=== PATIENT | male | born 1955 | race Caucasian/White ===

== ENCOUNTER 2023-12-15 09:05 | Day surgery (SDC) | payer MEDICARE ==
[2023-12-15] VITALS (16 sets, daily range): BP systolic 129–163; BP diastolic 66–92; PULSE 73–97; RESP 8–24; TEMP 98; O2SAT 16–97
[~2023-12-15] VITALS: Ht 172.7 cm; Wt 91.4 kg
[2023-12-15] MEDS ORDERED: LISI40TA13 PO (09:40)
[2023-12-15] MEDS ORDERED: FLO0.4C PO (09:40)
[2023-12-15] MEDS ORDERED: PIOG15TA8 PO (09:40)
[2023-12-15] MEDS ORDERED: [UNRECOGNIZED DRUG - CODE] PO (09:40)
[2023-12-15] MEDS ORDERED: PANT-47 PO (09:40)
[2023-12-15] MEDS ORDERED: METO-384 PO (09:40)
[2023-12-15] MEDS ORDERED: RIVA20TA PO (09:40)
[2023-12-15] MEDS ORDERED: ROSU40TA22 PO (09:40)
[2023-12-15 10:06] LABS: BASOPHILS # (AUTO) 0.1 X10'3 (0-0.2); BASOPHILS % (AUTO) 1.5 % (0-1); EOSINOPHILS # (AUTO) 0.1 X10'3 (0-0.9); EOSINOPHILS % (AUTO) 1.4 % (0-6); HEMATOCRIT 36.1 % (42.0-52.0); HEMOGLOBIN 11.5 g/dl (14.0-17.9); LYMPHOCYTES # (AUTO) 0.7 X10'3 (1.1-4.8); LYMPHOCYTES % (AUTO) 8.3 % (21-51); MEAN CORPUSCULAR HEMOGLOBIN 26.4 PG (27.0-31.0); MEAN CORPUSCULAR HGB CONC 31.9 g/dL (33.0-36.5); MEAN PLATELET VOLUME 9.2 FL (7.4-10.4); MONOCYTES # (AUTO) 0.6 X10'3 (0-0.9); MONOCYTES % (AUTO) 7.4 % (2-12); NEUTROPHILS # (AUTO) 6.5 X10'3 (1.8-7.7); NEUTROPHILS % (AUTO) 81.4 % (42-75); PLATELET COUNT 209 X10'3 (140-440); RED BLOOD COUNT 4.35 X10'6 (4.70-6.10); RED CELL DISTRIBUTION WIDTH 14.9 % (11.5-14.5); WHITE BLOOD COUNT 7.9 X10'3 (4.5-11.0)
[2023-12-15] MEDS: normal saline 1,000 ML IV SCH (10:07)
[2023-12-15] MEDS: sodium bicarbonate 1meq/ml syr 150 ML in dextrose 5%-water 1,000 ML IV SCH (10:08)
[2023-12-15 10:40] LABS: INR 1.2 INR; PROTHROMBIN TIME 12.4 SECONDS (9.0-12.0)
[2023-12-15] MEDS: diphenhydrAMINE 25mg capsule PO PRN (10:48)
[2023-12-15 10:55] LABS: ALBUMIN 3.5 G/DL (3.4-5.0); ANION GAP 10 (8-16); CALCIUM 9.1 MG/DL (8.5-10.1); CHLORIDE 107 MMOL/L (99-107); GLUCOSE 145 MG/DL (70-104); MAGNESIUM 2.2 MG/DL (1.5-2.4); POTASSIUM 4.2 MMOL/L (3.5-5.1); SODIUM 142 MMOL/L (135-145); TOTAL CARBON DIOXIDE 25.2 MMOL/L (24-32); eCRCL 76 ML/MIN; eGFR 84 ML/MIN
[2023-12-15 11:07] LABS: BLOOD UREA NITROGEN 17 MG/DL (7-18); BUN/CREATININE RATIO 18.9 (10.0-20.0)
[2023-12-15] MEDS ORDERED: iohexol 350 MG/ML 50ML vial IV ONE (12:05)
[2023-12-15] MEDS ORDERED: verapamil 2.5 mg/ml inj IV ONE (12:05)
[2023-12-15] MEDS ORDERED: LIDOcaine 1% (10mg/ml) 2ml vial ONE (12:05)
[2023-12-15] MEDS ORDERED: heparin 1,000unit/ml 10ml vial 10 ML ONE (12:05)
[2023-12-15] MEDS ORDERED: midazolam 1 mg/ML 2ml injection ONE ×2 (12:05→13:30)
[2023-12-15] MEDS ORDERED: iohexol 350MG/ML 100ml bottle IV ONE ×2 (12:05→13:34)
[2023-12-15] MEDS ORDERED: fentaNYL/PF 50MCG/1 ML 2ML syringe ONE (12:05)
[2023-12-15] MEDS ORDERED: nitroGLYCERIN 500mcg/5mL D5W 5 ML IV ONE (12:12)
[2023-12-15] MEDS ORDERED: LIDOcaine 1% 30ml preserv. free vial ONE (13:00)
[2023-12-15] MEDS ORDERED: hydrALAZINE 20mg/ml inj. IV ONE (13:35)
[2023-12-15] MEDS ORDERED: protamine sulfate 10mg/ml inj. ONE (13:39)
[2023-12-15] MEDS ORDERED: clopidogrel 300mg tablet ONE (13:55)
[2023-12-15] MEDS ORDERED: HYDROcodone/acetaminophen 10/325mg tab PO PRN (14:30)
[2023-12-15] MEDS ORDERED: HYDROcodone/acetaminophen 5mg/325mg tablet PO PRN (14:30)
[2023-12-15] MEDS ORDERED: proCHLORperazine 10 MG/2 ml inj IV PRN (14:30)
[2023-12-15] MEDS ORDERED: ondansetron/PF 4mg/2ml inj IV PRN (14:30)
[2023-12-15] MEDS ORDERED: cloNIDine 0.1 mg tablet PO PRN (14:35)
[2023-12-15] MEDS ORDERED: sodium bicarbonate 1meq/ml syr 150 ML in dextrose 5%-water 1,000 ML IV SCH (14:40)
== END 2023-12-15 18:05 | disposition home or self-care (01) ==
LOC: SSTAY O 09:05
PROVIDERS: ATTEND Internal Medicine Cardiovascular Disease
DX: R94.39 Abnormal result of other cardiovascular function study (principal); I25.10 Atherosclerotic heart disease of native coronary artery without angina pectoris; I48.19 Other persistent atrial fibrillation; I08.3 Combined rheumatic disorders of mitral, aortic and tricuspid valves; E78.5 Hyperlipidemia, unspecified; E11.9 Type 2 diabetes mellitus without complications; I47.10 Supraventricular tachycardia, unspecified; Z79.899 Other long term (current) drug therapy; Z79.84 Long term (current) use of oral hypoglycemic drugs; Z86.73 Personal history of transient ischemic attack (TIA), and cerebral infarction without residual deficits; Z98.890 Other specified postprocedural states; Z79.01 Long term (current) use of anticoagulants; Z82.49 Family history of ischemic heart disease and other diseases of the circulatory system
CPT/HCPCS: 36415; 80048; 82948; 83735; 85025; 85610; 93005; 93458; 93571; 99152; 99153; A6258; C1874; C9600; J0360; J1644; J2250; J2720; J3010; J3490; J7030; J7070; Q0163; Q9967; 93572; A6402; C1751; C1760; C1769; C1894